=== PATIENT | female | born 1975 | race Caucasian/White ===

== ENCOUNTER 2021-02-25 18:17 | Outpatient (CLI) | payer OTHER, BC, SELFPAY ==
--- NOTE | ~2021-02-25 | XR_ITS ---
XR knee LT min 4V DATE: 02/25/2021 18:51 INDICATION: Left knee pain for several years. No injury. TECHNIQUE: [place] and weightbearing AP, PA and lateral views COMPARISON: None FINDINGS: No fracture or dislocation or joint effusion. Joint spaces are well preserved. No radiopaqu e intra-articular loose body or chondrocalcinosis. IMPRESSION: Negative Reviewed, dictated and finalized at location A. IMPRESSION: Negative
--- NOTE | ~2021-02-25 | XR_ITS ---
XR knee RT min 4V DATE: 02/25/2021 18:51 INDICATION: Right knee pain. Surgery 15 years ago. No recent injury. TECHNIQUE: [place] and weightbearing AP, PA and lateral views COMPARISON: None FINDINGS: Slight periarticular spurring of the patella consistent with minimal patellofemoral osteoar thritis. No fracture or dislocation, periosteal reaction or bone destruction, radiopaque intra-articular loose body or chondrocalcinosis. Joint spaces are relatively well preserved. IMPRESSION: Minimal osteoarthritis at the patellofemoral joint Reviewed, dictated and finalized at location A.
== END 2021-02-25 18:18 | disposition home or self-care (01) ==
PROVIDERS: PCP Internal Medicine; Visit Provider Nurse Practitioner
DX: M25.561 Pain in right knee (principal); M25.562 Pain in left knee; G89.29 Other chronic pain; M17.11 Unilateral primary osteoarthritis, right knee
CPT/HCPCS: 73564

== ENCOUNTER → 2021-03-10 17:01 | Outpatient (CLI) | payer OTHER, BC, SELFPAY ==
--- NOTE | ~2021-03-10 | MR_ITS ---
EXAMINATION: MR knee RT wo con DATE: 03/10/2021 18:29 INDICATION: Right knee pain TECHNIQUE: Magnetic resonance imaging (MRI) of the right knee was performed without intravenous contr ast. Sequences included coronal PD-weighted FSE, coronal PD-weighted FS FSE, sagittal T2-weighted FS E, sagittal PD-weighted FS FSE and axial PD weighted fat saturated FSE. COMPARISON: None. FINDINGS: Medial compartment: Linear increased signal extending to the inferior articular surface of the posterior horn and posteri or body of the medial meniscus. There is a tiny focus of susceptibility artifact along the inner free edge of the posterior horn of the medial meniscus which is likely related to prior surgery and possi ble meniscal repair. Although the linear increased signal in the meniscus likely represents a longitu dinal horizontal tear, given the findings of likely prior surgery could not exclude that the signal r epresents scarring related to prior repaired tear. Relatively uniform mild partial-thickness cartilag e loss throughout the medial compartment with smooth chondral surface. Lateral compartment: Lateral meniscus is normal. Mild partial thickness cartilage loss with smooth chondral surface along the posterior weightbearing lateral femoral condyle. Patellofemoral compartment: Small region of deep chondral fissuring without degenerative subchondral changes at the central aspec t of the medial patellar facet. Trochlear cartilage appears normal. Ligaments and tendons: Anterior and posterior cruciate ligaments are normal. The medial collateral ligament and fibular phyllis ateral ligament complex are normal. The extensor mechanism is normal. The visualized medial and later al hamstring tendons as well as the iliotibial band are normal. Fluid: Physiologic amount of fluid in the joint space. No loose osteochondral bodies identified. Osseous/other: Normal marrow signal. No fracture or pathologic marrow replacing process. IMPRESSION: 1. Longitudinal horizontal tear versus scarring related to a chronic repaired tear at the body and po sterior horn of the medial meniscus. Correlate with surgical history. If there is been prior meniscal repair, could consider correlation with either prior prior imaging or MR arthrography to differentia te new/recurrent from repaired tear. 2. 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 Reviewed, dictated and finalized at location A. IMPRESSION: 1. Longitudinal horizontal tear versus scarring related to a chronic repaired t ear at the body and posterior horn of the medial meniscus. Correlate with surgi deja history. If there is been prior meniscal repair, could consider correlation with either prior prior imaging or MR arthrography to differentiate new/recurr ent from repaired tear. 2. Minimal to mild medial compartment predominant tricompartmental osteoarthrit is.
== END ==
PROVIDERS: PCP Internal Medicine; Visit Provider Nurse Practitioner
DX: M25.561 Pain in right knee (principal); R93.6 Abnormal findings on diagnostic imaging of limbs; M17.11 Unilateral primary osteoarthritis, right knee
CPT/HCPCS: 73721

== ENCOUNTER → 2021-04-03 13:35 | Outpatient (CLI) | payer OTHER, BC, SELFPAY ==
--- NOTE | ~2021-04-03 | MM_ITS ---
EXAMINATION: MM scrn michel implant BI w bennie HISTORY: Screening mammogram TECHNIQUE: Craniocaudal and mediolateral oblique 3-D tomosynthesis images with implant displacement a nd synthetic 2-D images were generated. Craniocaudal and mediolateral oblique views of the breasts wi thout implant displacement were obtained using full field digital mammography. CAD analysis was submi tted and interpreted. COMPARISON: Comparison to multiple prior studies sequentially, with oldest reviewed study dated 10/14. BREAST PARENCHYMAL COMPOSITION: Breast composed of scattered areas of fibroglandular density FINDINGS: There is no evidence of suspicious mass, calcification, or architectural distortion to sugg est malignancy in either breast. There has been no suspicious interval change. IMPRESSION: 1. No mammographic evidence of malignancy. 2. Recommend routine screening mammography in one year. BI-RADS Category 1: Negative Reviewed, dictated and finalized at location A.
== END ==
PROVIDERS: Visit Provider Obstetrics & Gynecology
DX: Z12.31 Encounter for screening mammogram for malignant neoplasm of breast (principal)
CPT/HCPCS: 77063; 77067

== ENCOUNTER 2021-05-04 14:03 | Emergency (ER) | payer OTHER, BC, SELFPAY ==
[2021-05-04 14:14] VITALS: BP 115/82; PULSE 84; RESP 16; TEMP 36.6; O2SAT 100
--- NOTE | 2021-05-04 14:36 | ED.EAR ---
HPI - Ear Problem General Chief complaint: Ear Stated complaint: ear pain Time Seen by Provider: 05/04/21 14:27 Source: patient and RN notes reviewed Mode of arrival: ambulatory Limitations: no limitations History of Present Illness HPI Narrative: Patient presents today complaining of right ear pain that started yesterday that she describes as sharp and shooting. Denies drainage. She does report intermittent muffling. Currently rates her pain 4/10 with intermittent shooting that she rates 10/10. She has been taking ibuprofen without relief. MD Complaint: ear pain and decreased hearing Related Data Allergies Allergy/AdvReac Type Severity Reaction Status Date / Time Penicillins Allergy Unknown Unknown Verified 05/04/21 14:27 Review of Systems Review of Systems: Narrative: CONSTITUTIONAL: Denies body aches, fever, chills, or sweats. EYES: Denies visual changes, redness, or discharge. ENT: Denies rhinorrhea, congestion, sore throat. + Right ear pain CARDIOVASCULAR: Denies chest pain, palpitations, or edema. RESPIRATORY: Denies cough or dyspnea. GASTROINTESTINAL: Denies abdominal pain, nausea, vomiting, or diarrhea. GENITOURINARY: Denies dysuria or hematuria. SKIN: Denies rash, itching, or wounds. MUSCULOSKELETAL: Denies back pain, joint pain, or myalgia. NEUROLOGIC: Denies headache, numbness, tingling, or weakness. PSYCH: Denies depression or anxiety. [facility] Past Medical History Medical History (Updated 05/04/21 @ 14:38 by Britt Walker, [facility]) Heart murmur History of in vitro fertilization Migraine Surgical History Surgical History H/O breast augmentation H/O section Family History Family History Mother Family history of blood dyscrasia Hypertension Family history of elevated blood lipids Cerebrovascular accident Grandparent Cerebrovascular accident Family history of coronary artery disease Father Cerebrovascular accident Social History Social History Smoking status: Never smoker Second hand tobacco smoke exposure: No Alcohol intake: current Comments At time of signature, I have reviewed and agree with nursing past medical, surgical, social and family history unless otherwise noted. Please see nursing chart for further information. There is no relevant family history pertinent to the presenting complaint Exam Narrative: Exam Narrative: GENERAL: Well-appearing, well-nourished, and in no acute distress. HEAD: Normocephalic, atraumatic. EYES: EOMI. No redness or drainage. Conjunctivae normal. ENT: Mucous membranes pink and moist. Nares clear. No rhinorrhea. Left TM and canal normal. Right canal normal without movement tenderness or tragal tenderness. Right TM is severely retracted. Throat normal. Uvula midline. NECK: Normal AROM. Supple. No lymphadenopathy. CHEST: No respiratory distress. Clear to auscultation. HEART: Regular rate and rhythm. No murmur appreciated. Normal peripheral pulses. EXTREMITIES: Normal range of motion. No edema. SKIN: Warm, dry, no rash. Capillary refill normal. Normal skin turgor. NEURO: No focal deficits. Alert and oriented x3. Gait steady. PSYCH: Normal affect. No signs of depression or anxiety. Course Vital Signs Vital signs: Vital Signs Temperature 97.8 F 05/04/21 14:14 Pulse Rate 84 05/04/21 14:14 Respiratory Rate 16 05/04/21 14:14 Blood Pressure 115/82 05/04/21 14:14 Pulse Oximetry 100 05/04/21 14:14 Temperature 97.8 F 05/04/21 14:14 Pulse Rate 84 05/04/21 14:14 Respiratory Rate 16 05/04/21 14:14 Blood Pressure 115/82 05/04/21 14:14 Pulse Oximetry 100 05/04/21 14:14 Reviewed. Pt has been instructed to follow up with her PCP regarding her elevated blood pressure today. Medical Decision Making Differential Diagnosis Differe
== END 2021-05-04 14:40 | disposition home or self-care (01) ==
PROVIDERS: Emergency Provider Nurse Practitioner; PCP Internal Medicine
DX: H73.891 Other specified disorders of tympanic membrane, right ear (principal)
CPT/HCPCS: 99211; G0463

== ENCOUNTER 2021-05-26 12:37 | Emergency (ER) | payer OTHER, BC, SELFPAY ==
--- NOTE | 2021-05-26 12:39 | ED.FEMALEGU ---
HPI - Female Genitourinary General Chief complaint: Urogenital-Female Stated complaint: uti symptoms Time Seen by Provider: 05/26/21 12:39 Source: patient and RN notes reviewed History of Present Illness HPI Narrative: Patient is a 46-year-old female who presents the urgent care with complaints of a possible UTI. Patient states that she noticed yesterday she started to have urinary frequency, urgency and some suprapubic pressure. Patient states that today she woke up with some lower back pain. Patient denies of any fever, chills, nausea, vomiting, abdominal pains. Patient states she has been taking Advil since symptoms started. Reports of having a UTI a couple months ago which was noted in her pharmacy to have taken ciprofloxacin on February 11. Patient denies of any blood in the urine. No other acute complaints. No acute distress noted. Patient aware of the plan of care. Some parts of this dictation were generated by voice recognition software and may contain typographical and/or grammatical inaccuracies. Related Data Allergies Allergy/AdvReac Type Severity Reaction Status Date / Time Penicillins Allergy Unknown Unknown Verified 05/04/21 14:27 Review of Systems Review of Systems: Narrative: CONSTITUTIONAL: Denies fever, chills, or sweats. EYES: Denies visual changes, redness, or discharge. ENT: Denies rhinorrhea, congestion, sore throat, or otalgia. CARDIOVASCULAR: Denies chest pain, palpitations, or edema. RESPIRATORY: Denies cough or dyspnea. GASTROINTESTINAL: Denies abdominal pain, nausea, vomiting, or diarrhea. GENITOURINARY: Reports of urinary frequency, urgency and suprapubic pressure SKIN: Denies rash or itching. MUSCULOSKELETAL: Reports of low back pain NEUROLOGIC: Denies headache, numbness, or weakness. All other systems reviewed are negative, except as documented in HPI. [facility] Past Medical History Medical History (Updated 05/26/21 @ 12:53 by GIANNI Michel) Heart murmur History of in vitro fertilization Migraine Surgical History Surgical History H/O breast augmentation H/O section Family History Family History Mother Family history of blood dyscrasia Hypertension Family history of elevated blood lipids Cerebrovascular accident Grandparent Cerebrovascular accident Family history of coronary artery disease Father Cerebrovascular accident Social History Social History Smoking status: Never smoker Second hand tobacco smoke exposure: No Alcohol intake: current Comments At the time of my signature, I reviewed and agree with the nursing past medical, surgical, social, and family history. There is no relevant family history pertinent to the patient complaint. Exam Narrative: Exam Narrative: GENERAL: This is a well-nourished, well-developed patient, in no apparent distress. HEAD: normocephalic, atraumatic. EYES: PERRL. Sclera clear/white. Vision is grossly intact. EARS: External ears normal NOSE: External nose normal with no obvious nasal discharge, nares without redness, no rhinorrhea. THROAT: Mucous membranes moist NECK: Neck supple CARDIOVASCULAR: Regular rate and rhythm without murmurs, gallops, or rubs. RESPIRATORY: Clear to auscultation. Breath sounds equal bilaterally. No wheezes, rales, or rhonchi. GASTROINTESTINAL: Abdomen soft, non-tender, nondistended. Bowel sounds are active. SKIN: warm, intact with no suspicious lesions or rash, good texture and turgor. NEURO: awake, alert, and oriented to person, place and time. There were no obvious focal neurologic abnormalities. EXTREMITIES: No clubbing, cyanosis, or edema. BACK: Negative CVA tenderness Course Vital Signs Vital signs: Vital Signs Temperature 97.6 F 05/26/21 12:40 Pulse Rate 73 05/26/21 12:40 Respiratory Rate 12 05/26/21 12
[2021-05-26 12:40] VITALS: BP 130/86; PULSE 73; RESP 12; TEMP 36.4; O2SAT 100
== END 2021-05-26 12:57 | disposition home or self-care (01) ==
PROVIDERS: Emergency Provider Nurse Practitioner Family; PCP Internal Medicine
DX: R39.15 Urgency of urination (principal); R01.1 Cardiac murmur, unspecified
CPT/HCPCS: 81003; 99212; G0463

== ENCOUNTER 2021-10-17 10:51 | Emergency (ER) | payer OTHER, BC, SELFPAY ==
[2021-10-17 10:56] VITALS: BP 100/73; PULSE 74; RESP 16; TEMP 36.4; O2SAT 99
--- NOTE | 2021-10-17 11:33 | ED.URI ---
HPI - URI/Sore Throat General Chief Complaint: Upper Respiratory Infection Stated Complaint: Sinus Source: patient and RN notes reviewed Limitations: no limitations History of Present Illness HPI Narrative: The vaccinated patient, who is a non-smoker/occ drinker here with other unwell family members, presents with cough. Mother states she has a 2-week history of cough, congestion postnasal drip with sinus headache. No fever measured, earache; no loss of taste/smell, CP, vomiting/diarrhea, S OB, wheezing. Symptoms are mild, slightly worse at night when supine. Related Data Allergies Allergy/AdvReac Type Severity Reaction Status Date / Time Penicillins Allergy Unknown Unknown Verified 10/17/21 10:59 Review of Systems Review of Systems: General/Constitutional: No weight loss,fever Eyes: N0: Redness,discharge Ears/Nose/Throat: No: Epistaxis,ear discharge Respiratory: Denies: Hemoptysis Gastrointestinal: No Vomiting, Bleeding-rectal Skin: No Lumps, eruption Neurologic: No Focal Weakness,Sz Hematologic: Denies: Petechiae/Purpura Psychiatric: No: Suicida ideationl All Other Systems: Reviewed and Negative PMFSH Past Medical History Medical History Heart murmur History of in vitro fertilization Migraine Surgical History Surgical History H/O breast augmentation H/O section Family History Family History Mother Family history of blood dyscrasia Hypertension Family history of elevated blood lipids Cerebrovascular accident Grandparent Cerebrovascular accident Family history of coronary artery disease Father Cerebrovascular accident Social History Social History Smoking status: Never smoker Second hand tobacco smoke exposure: No Alcohol intake: current Comments At time of signature, agree with nursing past medical, surgical, social and family history. There is no relevant family history pertinent to the presenting complaint Exam Narrative: General Appearance: Well appearing, Well nourished EYE: PERRLA, Conjunctiva clear Ears: Auditory canal normal, TM normal Nose: Rhinorrhea, Mucousal erythema Mouth/Throat: MM moist, Uvula midline, Pharyngeal erythema Neck: Supple, No adenopathy Respiratory: No respiratory distress, Breath sounds equal, Clear to auscultation Cardiovascular: RRR, No JVD Musculoskeletal: Non tender, Normal strength Skin: Warm, Dry Neurological: A&O x3, CN II-XII intact Psychiatric: Normal mood, Normal affect Course Vital Signs Vital signs: Vital Signs Temperature 97.5 F L 10/17/21 10:56 Pulse Rate 74 10/17/21 10:56 Respiratory Rate 16 10/17/21 10:56 Blood Pressure 100/73 10/17/21 10:56 Pulse Oximetry 99 10/17/21 10:56 Temperature 97.5 F L 10/17/21 10:56 Pulse Rate 74 10/17/21 10:56 Respiratory Rate 16 10/17/21 10:56 Blood Pressure 100/73 10/17/21 10:56 Pulse Oximetry 99 10/17/21 10:56 MDM - URI/Sore Throat Lab Data Labs: Lab Results 10/17/21 10/17/21 Range/Units 11:08 11:28 SARS-CoV-2 RNA (RT-PCR) Pending POC SARS CoV-2 Ag Negative (Negative) Discharge Plan Discharge Clinical Impression: Sinus headache Patient Disposition: Home, Self-Care Condition: Stable Instructions: Antibiotic Form, Rhinosinusitis (ED) Prescriptions: New benzonatate 100 mg capsule 100 mg PO TID PRN (Reason: cough) Qty: 20 RF: 2 codeine-guaifenesin 10-100 mg/5 mL liquid 7.5 ml PO BID PRN (Reason: cough) Qty: 118 RF: 0 azelastine 137 mcg (0.1 %) aerosol,spray 137 mcg NASAL Q12H Qty: 30 RF: 0 cefuroxime axetil 500 mg tablet 500 mg PO Q12H Qty: 14 RF: 0 No Action topiramate 50 mg tablet 50 mg PO BID Qty: 180 RF: 1 sumatriptan succinate 100 mg tabl
[2021-10-19 19:11] LABS: SARS-CoV-2 RNA PCR Negative
== END 2021-10-17 11:52 | disposition home or self-care (01) ==
PROVIDERS: Emergency Provider Emergency Medicine
DX: J32.9 Chronic sinusitis, unspecified (principal); Z20.822 Contact with and (suspected) exposure to COVID-19
CPT/HCPCS: 87426; 99213; C9803; G0463; U0003; U0005

== ENCOUNTER 2021-11-04 00:48 | Day surgery (SDC) | payer OTHER, BC, SELFPAY ==
[2021-10-22 15:15] VITALS: BMI 25.8
[2021-11-04 06:49] VITALS: BP 111/77; PULSE 91; RESP 18; TEMP 36.7; O2SAT 100
[2021-11-04] MEDS: LACTATED RINGERS 1,000 ML 150 ML IV CONT (07:11)
--- NOTE | 2021-11-04 07:25 | WPDANESEPPF ---
Anes - Initial Pre Proc Eval Procedure: Operation Date: 11/04/21 08:00 Proposed Procedures p Screening Colonoscopy - Tam Marin MD Date/Time: 11/04/21 07:25 Surgeon: Tam Marin MD Pre Op Diagnosis: neoplasm screening Patient Data Age: 46 Gender: F Height: 1.57 m Weight: 62.9 kg Last Vital Signs Temp 98.1 F 11/04/21 06:49 Pulse 91 11/04/21 06:49 Resp 18 11/04/21 06:49 BP 111/77 11/04/21 06:49 Pulse Ox 100 11/04/21 06:49 Allergies Allergy/AdvReac Type Severity Reaction Status Date / Time Penicillins Allergy Severe Swelling Verified 11/04/21 06:48 Home Medications Medication Instructions Recorded Confirmed Type topiramate 50 mg tablet 50 mg PO BID #180 tablet 08/03/21 10/22/21 Rx sumatriptan succinate 100 mg tablet See Rx Instructions .ROUTE 09/29/21 10/22/21 Rx .COMPLEX #9 tablet Patient hx anesthesia problems: none Family hx anesthesia problems: none Results Review: All pre-operative results and documents have been reviewed as part of the pre-operative evaluation. [facility] Past Medical History Medical History Heart murmur History of in vitro fertilization Migraine Surgical History Surgical History H/O breast augmentation H/O section Family History Family History Mother Family history of blood dyscrasia Hypertension Family history of elevated blood lipids Cerebrovascular accident Grandparent Cerebrovascular accident Family history of coronary artery disease Father Cerebrovascular accident Social History Social History Smoking status: Never smoker Second hand tobacco smoke exposure: No Alcohol intake: current Substance use: never Substance use type: does not use Living arrangements: with family Spiritual care concerns: No Anes - Eval Final PreProcedure Day of Procedure 11/04/21 07:25 Patient weight: normal Heart: regular rate and rhythm Lungs: clear to auscultation Airway: Mallampati scale class II Neurological: alert and oriented Last oral intake: >/= 8 hours ASA classification: II Emergent: no Anesthetic plan: proceed Anesthesia type and monitoring: general GIVS and standard monitoring Results Review: All pre-operative results and documents have been reviewed as part of the pre-operative evaluation. Informed Consent: The patient's anesthetic plan and its attendant risks and benefits were discussed with the patient/family/POA. Questions were solicited and answers provided to the satisfaction of the patient/family/POA.
--- NOTE | 2021-11-04 07:49 | PM.HPGS ---
History of Present Illness History of Present Illness Consent: Risks, benefits, and alternatives have been discussed and questions answered. Patient agrees to proceed with procedure. Chief complaint: neoplasm screening Narrative: Lilli Palomares is a 46 year old female here for first screening colonoscopy Review of Systems Constitutional: Constitutional: Denies headache(s) and Denies weakness Eyes: Eyes: Denies blurry vision ENT: Reports Normal hearing present, Denies headache(s) and Denies neck pain Cardiovascular: Cardiovascular: Denies chest pain and Denies dyspnea Respiratory: Respiratory: Denies dyspnea Gastrointestinal: Gastrointestinal: Reports no additional gastrointestinal complaints Genitourinary: Genitourinary: Denies dysuria Musculoskeletal: Musculoskeletal: Denies neck pain Integumentary/Breasts: Skin/Breast: Denies dry skin Neurologic: Reports Normal hearing present, Denies headache(s) and Denies weakness Psychiatric: Psychiatric: Denies anxiety Endocrine: Endocrine: Denies change in body appearance Hematologic/Lymphatic: Hematologic/Lymphatic: Denies easy bleeding Allergic/Immunologic: Allergic/Immunologic: Denies urticaria PMF Past Medical History Medical History (Updated 11/04/21 @ 07:49 by Tam Marin MD) Colon cancer screening Heart murmur History of in vitro fertilization Migraine Surgical History Surgical History H/O breast augmentation H/O section Family History Family History Mother Family history of blood dyscrasia Hypertension Family history of elevated blood lipids Cerebrovascular accident Grandparent Cerebrovascular accident Family history of coronary artery disease Father Cerebrovascular accident Social History Social History Smoking status: Never smoker Second hand tobacco smoke exposure: No Alcohol intake: current Substance use: never Substance use type: does not use Living arrangements: with family Spiritual care concerns: No Meds Home Medications and Allergies Home Medications Medication Instructions Recorded Confirmed Type topiramate 50 mg tablet 50 mg PO BID #180 tablet 08/03/21 10/22/21 Rx sumatriptan succinate 100 mg tablet See Rx Instructions .ROUTE 09/29/21 10/22/21 Rx .COMPLEX #9 tablet Allergies Allergy/AdvReac Type Severity Reaction Status Date / Time Penicillins Allergy Severe Swelling Verified 11/04/21 06:48 Vital Signs Vital Signs - 24 hr 11/04/21 06:49 Temperature 98.1 F Pulse Rate 91 Respiratory Rate 18 Blood Pressure 111/77 Pulse Oximetry 100 Exam Const: General: comfortable and no acute distress HENMT: General nose exam: Normal nares present Eyes: General: appearance normal, both eyes and all related structures Neck: Neck: no JVD Resp: Auscultation: clear to auscultation bilaterally Cardio: Rate: regular rate Rhythm: regular rhythm GI: Inspection: non-distended GI Palp: Yes Soft to palpation Skin: General skin exam: normal color Neuro: General: gait normal Speech: normal speech Extrem: General: normal to inspection Psych: Mental Status: mental status grossly normal Assessment and Plan Assessment and plan (1) Colon cancer screening: Code(s): Z12.11 - Encounter for screening for malignant neoplasm of colon Status: Acute Assessment and Plan: colonoscopy
[2021-11-04 08:07] VITALS: BP 91/56; PULSE 71; RESP 19; O2SAT 99
[2021-11-04 08:17] VITALS: BP 103/72; PULSE 63; RESP 23; O2SAT 99
[2021-11-04 08:27] VITALS: BP 106/70; PULSE 66; RESP 13; O2SAT 95
== END 2021-11-04 08:39 | disposition home or self-care (01) ==
PROVIDERS: Visit Provider Internal Medicine Gastroenterology
PROC: 0DJD8ZZ Inspection of Lower Intestinal Tract, Via Natural or Artificial Opening Endoscopic (ICD-10-PCS; CPT 45378; principal; 2021-11-04 08:00)
DX: Z12.11 Encounter for screening for malignant neoplasm of colon (principal); R01.1 Cardiac murmur, unspecified
CPT/HCPCS: 45378; J2704; J7120

== ENCOUNTER 2022-05-01 10:06 | Emergency (ER) | payer OTHER, BC, SELFPAY ==
[2022-05-01 10:14] VITALS: BP 114/78; PULSE 81; RESP 16; TEMP 36.8; O2SAT 98
--- NOTE | 2022-05-01 10:27 | ED.GENADULT ---
HPI - General Adult General Chief complaint: Upper Respiratory Infection Stated complaint: sore throat/cough/sinus drainage Source: patient Mode of arrival: ambulatory Limitations: no limitations History of Present Illness HPI narrative: Patient presents for evaluation of respiratory symptoms since Tuesday of this week. Symptoms include postnasal drainage, sore throat, and nonproductive cough. No fever, chills, nausea, vomiting. 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 She tried taking flonase and zyrtec for her symptoms. No hx of COVID to her knowledge. She has received her COVID vaccination and booster. Her daughter is here to be seen for left sided otalgia. No tobacco use. No additional complaints or concerns. Related Data Allergies Allergy/AdvReac Type Severity Reaction Status Date / Time Penicillins Allergy Severe Swelling Verified 05/01/22 10:15 Review of Systems Review of Systems: CONSTITUTIONAL: Denies fever, chills, or sweats. EYES: Denies visual changes, redness, or discharge. ENT: Reports postnasal drainage and sore throat. Denies otalgia. CARDIOVASCULAR: Denies chest pain, palpitations, or edema. RESPIRATORY: Reports nonproductive cough. Denies dyspnea. GASTROINTESTINAL: Denies abdominal pain, nausea, vomiting, or diarrhea. GENITOURINARY: Denies dysuria or hematuria. SKIN: Denies rash or itching. MUSCULOSKELETAL: Denies back pain, joint pain, or myalgia. NEUROLOGIC: Denies headache, numbness, dizziness, or weakness. PSYCHIATRIC: Denies anxiety or depression. [facility] Past Medical History Medical History Colon cancer screening Heart murmur History of in vitro fertilization Migraine Surgical History Surgical History H/O breast augmentation H/O section Family History Family History Mother Family history of blood dyscrasia Hypertension Family history of elevated blood lipids Cerebrovascular accident Grandparent Cerebrovascular accident Family history of coronary artery disease Father Cerebrovascular accident Social History Social History Smoking status: Never smoker Second hand tobacco smoke exposure: No Alcohol intake: current Substance use: never Substance use type: does not use Living arrangements: with family Gender identity (if verbalized by the patient): Female Sexual Orientation (if Verbalized by the Patient): Straight or Heterosexual Spiritual care concerns: No Exam Narrative: GENERAL: Well-appearing, well-nourished, and in no acute distress. HEAD: Normocephalic, atraumatic. EYES: PERRLA and EOMI. ENT: Nares clear, no rhinorrhea or epistaxis. Mucous membranes moist. Posterior pharyngeal erythema without exudate. Uvula is midline. Bilateral TMs pearly allen nonbulging NECK: Supple. No adenopathy or masses. No carotid bruits or JVD CHEST: Clear to auscultation. No respiratory distress. No wheezes rales or rhonchi HEART: Regular rate and rhythm. No murmur heard. Normal peripheral pulses. ABDOMEN: Soft, nontender, nondistended, normal active bowel sounds. EXTREMITIES: Normal range of motion. No edema. SKIN: Warm, dry, no rash. NEURO: No focal deficits. Alert and oriented x3. PSYCH: Normal mood and affect. Course Course Emergency Course: This is a 46-year-old female who presented with complaints of sore throat with recent strep exposure. Rapid strep was negative. We will treat with azithromycin due to penicillin allergy due to strong suspicion that she has strep. Daughter is here today with similar symptoms. She should follow up outpatient for further evaluation and treatment and return for worsening symptoms. Pt in agreement with plan of care. Level of Care: Express Care Visit Vital Signs
== END 2022-05-01 11:10 | disposition home or self-care (01) ==
PROVIDERS: Emergency Provider Nurse Practitioner; PCP Internal Medicine
DX: J02.9 Acute pharyngitis, unspecified (principal); R01.1 Cardiac murmur, unspecified
CPT/HCPCS: 87081; 87880; 99213; G0463

== ENCOUNTER → 2022-08-25 15:50 | Outpatient (CLI) | payer OTHER, BC, SELFPAY ==
--- NOTE | ~2022-08-25 | MM_ITS ---
EXAMINATION: MM scrn michel implant BI w bennie HISTORY: Screening mammogram TECHNIQUE: Craniocaudal and mediolateral oblique 3-D tomosynthesis images with implant displacement a nd synthetic 2-D images were generated. Craniocaudal and mediolateral oblique views of the breasts wi thout implant displacement were obtained using full field digital mammography. CAD analysis was submi tted and interpreted. COMPARISON: Comparison to multiple prior studies sequentially, with oldest reviewed study dated 10/14. BREAST PARENCHYMAL COMPOSITION: There are scattered areas of fibroglandular density. FINDINGS: There is no evidence of suspicious mass, calcification, or architectural distortion to sugg est malignancy in either breast. There has been no suspicious interval change. IMPRESSION: 1. No mammographic evidence of malignancy. 2. Recommend routine screening mammography in one year. BI-RADS Category 1: Negative Reviewed, dictated and finalized at location A.
== END ==
PROVIDERS: PCP Internal Medicine; Visit Provider Obstetrics & Gynecology
DX: Z12.31 Encounter for screening mammogram for malignant neoplasm of breast (principal)
CPT/HCPCS: 77063; 77067

== ENCOUNTER 2023-05-26 15:32 | Outpatient (CLI) | payer OTHER, BC, SELFPAY ==
[2023-05-26 17:07] LABS: Basophils Percent Auto 0.6 % (0.2-1.2); Eosinophils Absolute Auto 0.1 K/mm3 (0-0.3); Eosinophils Percent Auto 1.1 % (0-4.4); Hematocrit 44.3 % (37.0-47.0); Hemoglobin 14.3 g/dL (12.0-15.0); Immature Granulocyte Absolute 0.02 K/mm3 (0.00-0.031); Immature Granulocyte Percent A 0.3 % (0-0.5); Lymphocytes Absolute Auto 2.17 K/mm3 (0.9-3.2); Lymphocytes Percent Auto 34.7 % (18.3-44.2); Mean Corpuscular HGB Conc 32.3 g/dl (32-36); Mean Corpuscular Volume 95.9 fl (80-100); Mean Platelet Volume 10.5 fl (7.4-10.4); Monocytes Absolute Auto 0.5 K/mm3 (0.1-0.6); Monocytes Percent Auto 7.2 % (2.6-8.5); Neutrophils Absolute Auto 3.5 K/mm3 (1.3-6.7); Neutrophils Percent Auto 56.1 % (45.5-73.1); Platelet Count Result 193 k/mm3 (150-375); Red Blood Count 4.62 M/mm3 (4.2-5.4); Red Cell Distribution Width 12.6 % (11.5-14.5); White Blood Count 6.3 K/mm3 (4.5-10.0)
[2023-05-26 17:19] LABS: Alanine Aminotransferase 24 U/L (6-35); Albumin Level 4.4 g/dL (3.5-5.1); Alkaline Phosphatase 72 U/L (38-126); Anion Gap 3 mmol/L (8-16); Aspartate Amino Transferase 59 U/L (14-36); Bilirubin,Total 0.9 mg/dL (0.2-1.3); Blood Urea Nitrogen 26 mg/dL (7-17); Calcium 9.2 mg/dL (8.4-10.2); Carbon Dioxide 29 mmol/L (22-30); Chloride 105 mmol/L (98-107); Cholesterol 177 mg/dL (0-200); Estimated Glomerular Filt Rate > 60; Glucose 84 mg/dL (65-110); HDL Direct 54 mg/dL; Potassium 3.6 mmol/L (3.4-5.0); Sodium 137 mmol/L (137-145); Triglycerides 63 mg/dL (<150)
[2023-05-26 17:30] LABS: LDL Cholesterol Direct 81 mg/dL
[2023-05-26 17:34] LABS: Vitamin D 25 Hydroxy 86.5 ng/mL
== END 2023-05-26 15:33 | disposition home or self-care (01) ==
LOC: ANHGOSHLAB 15:33
PROVIDERS: PCP Internal Medicine; Visit Provider Nurse Practitioner
DX: Z13.21 Encounter for screening for nutritional disorder (principal); Z13.220 Encounter for screening for lipoid disorders; Z13.228 Encounter for screening for other metabolic disorders
CPT/HCPCS: 36415; 80053; 80061; 82306; 85025

== ENCOUNTER → 2023-11-23 15:58 | Outpatient (CLI) | payer OTHER, BC, SELFPAY ==
--- NOTE | ~2023-11-23 | MM_ITS ---
EXAMINATION: MM scrn michel implant BI w bennie HISTORY: Screening mammogram TECHNIQUE: Craniocaudal and mediolateral oblique 3-D tomosynthesis images with implant displacement a nd synthetic 2-D images were generated. Craniocaudal and mediolateral oblique views of the breasts wi thout implant displacement were obtained using full field digital mammography. CAD analysis was submi tted and interpreted. COMPARISON: 08/25/2022, 04/03/2021, 09/28/2019 BREAST PARENCHYMAL COMPOSITION: There are scattered areas of fibroglandular density. FINDINGS: There is no evidence of suspicious mass, calcification, or architectural distortion to sugg est malignancy in either breast. There has been no suspicious interval change. IMPRESSION: 1. No mammographic evidence of malignancy. 2. Recommend routine screening mammography in one year. BI-RADS Category 1: Negative Reviewed, dictated and finalized at location A. ST
== END ==
PROVIDERS: PCP Internal Medicine; Visit Provider Obstetrics & Gynecology
DX: Z12.31 Encounter for screening mammogram for malignant neoplasm of breast (principal)
CPT/HCPCS: 77063; 77067

== ENCOUNTER 2024-08-07 07:54 | Outpatient (CLI) | payer OTHER, BC, SELFPAY ==
[2024-08-28 15:14] VITALS: BMI 18.7
--- NOTE | 2024-08-28 15:14 | WPDHOMESLEEP ---
Sleep Study - Home Unattended Date of Study: 08/07/24 Ordering Provider: Sandra Wick NP Interpreting Provider: Kat Estrada, DO Home Sleep Study Type: Watch PAT Height: 1.88 m Weight: 66.224 kg Body Mass Index: 18.7 Neck Circumference (inches): 13.5 [place]: 18 Reason for Sleep Study Snoring, excessive daytime sleepiness Sleep History The patient is a 49-year-old female that had a sleep study ordered by her primary care for evaluation of sleep apnea. The patient admits to excessive daytime sleepiness. She admits to snoring loudly. She states that she stops breathing while she is asleep. She does admit to choking and gasping during the night. She denies having trouble breathing on her back. She denies waking up in the morning with a headache. She denies having a dry or sore mouth/ throat in the morning. She denies nocturnal heartburn. She denies nocturia. She denies having trouble falling asleep and denies having trouble remaining asleep. She denies waking up too early without an alarm. She does not have difficulty returning to sleep if she wakes up during the night. She denies using hypnotics her sedatives. She denies feeling anxious about sleep. She does admit to feeling tired or fatigued during the day. She admits to feeling unrefreshed in the morning. She admits to having the urge to fall asleep during the day. She does feel drowsy while driving. She denies sleep paralysis and cataplexy. She admits to having hallucinations or dreamlike images whenever she is either waking up or falling asleep. She does admit to clenching or grinding her teeth. She denies kicking or jerking her legs excessively. She denies having a restless feeling in her legs. She goes to bed at 11:15 p.m. on work days and at 12:30 a.m. on non-work days. It takes her 30 minutes to fall asleep. She typically gets 6-1/2 hours of sleep on her work days and 8 hours of sleep on her non-work days. She states that her sleep is much more restorative on her days off. She denies taking planned naps. She denies acting out her dreams. She denies sleep walking. She consumes 1-2 cups of caffeinated beverage per day. She denies alcohol and tobacco use. She exercises 3-4 nights per week. PMFSH Past Medical History Medical History Colon cancer screening Heart murmur History of in vitro fertilization Migraine Surgical History Surgical History H/O breast augmentation H/O section x3 Family History Family History Mother Family history of blood dyscrasia Hypertension Family history of elevated blood lipids Cerebrovascular accident Grandparent Cerebrovascular accident Family history of coronary artery disease Father Cerebrovascular accident Social History Social History Smoking status: Never smoker Second hand tobacco smoke exposure: No Alcohol intake: current Substance use: never Substance use type: does not use Lack of Transportation: No Lack of Food: Never True Current Housing: I Have Housing Concerned About Future Housing: No Difficulty Paying Gas/Electric Bills: No Difficulty Paying for Meds: No Currently Unemployed: No Education: Master's Degree or Higher Difficulty w/ Childcare or Family Care: No Living arrangements: with family Gender identity (if verbalized by the patient): Female Sexual Orientation (if Verbalized by the Patient): Straight or Heterosexual Spiritual care concerns: No Medications Home Medications Medication Instructions Recorded Confirmed Type bupropion HCl 150 mg 24 hr tablet, 150 mg PO QAM #90 tabs 11/15/23 06/14/24 Rx extended release (Wellbutrin XL) sumatriptan succinate 100 mg tablet See Rx Instructions .Route 0
== END 2024-08-20 14:26 | disposition home or self-care (01) ==
LOC: ANHCSM 07:55
PROVIDERS: PCP Internal Medicine; Visit Provider Nurse Practitioner
DX: G47.33 Obstructive sleep apnea (adult) (pediatric) (principal); G47.19 Other hypersomnia
CPT/HCPCS: 95800

== ENCOUNTER 2025-08-20 06:59 | Outpatient (CLI) | payer OTHER, BC, SELFPAY ==
--- NOTE | ~2025-08-20 | MM_ITS ---
EXAMINATION: MM scrn michel implant BI w bennie INDICATION: Asymptomatic, referred for screening mammogram COMPARISON: 11/23/2023 through 05/26/2018 TECHNIQUE: Digital Breast Tomosynthesis CC, MLO, and implant displaced CC and MLO views of Both breasts were obtained with computer-aided detection to assist in interpretation of the study. FINDINGS: There are scattered areas of fibroglandular density. Bilateral breast Retropectoral Saline implants in place appears intact. No focal dominant mass, architectural distortion, or suspicious microcalcifications are identified. There are no features to suggest malignancy. IMPRESSION: 1. No evidence of malignancy in the breasts. 2. Both breasts Retropectoral Saline implants appears intact. Recommend continued screening mammography BI-RADS 1, NEGATIVE Reviewed, dictated and finalized at location B.
== END 2025-08-20 07:00 | disposition home or self-care (01) ==
PROVIDERS: PCP Internal Medicine; Visit Provider Obstetrics & Gynecology
DX: Z12.31 Encounter for screening mammogram for malignant neoplasm of breast (principal)
CPT/HCPCS: 77063; 77067